=== PATIENT | female | born 1995 | race Caucasian/White ===

== ENCOUNTER 2020-12-10 22:23 | Emergency (ER) | payer SELFPAY ==
[~2020-12-10] VITALS: Ht 149.9 cm; Wt 58.5 kg
[2020-12-10 22:48] LABS: Source, Urine Clean Catch
[2020-12-10 22:53] LABS: Appearance, Urine Cloudy (Clear); Bilirubin, Urine Neg (Neg); Blood, Urine 5+ (Neg); Color, Urine Yellow (P-Yellow); Glucose Qualitative, Urine Neg (Neg); Ketones, Urine 1+ (Neg); Leukocyte Esterase, Urine 3+ (Neg); Nitrite, Urine Neg (Neg); Protein, Urine 3+ (Neg); Urobilinogen, Urine 1+ (Normal)
[2020-12-10] MEDS ORDERED: Macrobid 100 M100 MG PO (23:00)
[2020-12-10 23:01] LABS: White Blood Cells, Urine 25-50 /hpf (0-5)
[2020-12-10 23:02] LABS: Bacteria Many /hpf; Mucus Light (0-Heavy); Red Blood Cells, Urine TNTC /hpf (0-2); Squamous Epithelial Cells Few /hpf (Few)
== END 2020-12-10 23:14 | disposition home or self-care (01) ==
LOC: ER 22:23
PROVIDERS: Physician Assistant
DX: N39.0 Urinary tract infection, site not specified (principal)
CPT/HCPCS: 81001; 81025; 87077; 87086; 87186; 99283; A9270